=== PATIENT | male | born 1940 | race Caucasian/White ===

== ENCOUNTER 2021-12-16 12:39 | Emergency (ER) | payer MEDICARE, OTHER ==
[~2021-12-16] VITALS: Ht 182.9 cm; Wt 97.5 kg
--- NOTE | 2021-12-16 13:28 | ED General ---
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 She said he recently had labs done and his hemoglobin was 7.8 and he has been anemic before. They took him off his iron and restarted it recently due to this. Denies any bleeding anywhere including normal colored stools. He does say he is constipated however and has not had a bowel movement in a couple weeks. He has had no appetite for several days and really has not eaten hardly anything per the daughter. He is wheelchair-bound and does assist with transfers which is his baseline. Denies any focal weakness or numbness on one side of his body. Denies any pain anywhere specifically in his chest, abdomen, or head. For the past couple days he has felt more nauseous but no vomiting. Is also felt short of breath for about a week, worse at night when lying backwards. Cough started today. No fevers. 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 This wound has never fully healed after years. He has consistent wound care, and they say it looks really good and does not appear infected to them. Allergies and Home Medications Allergies Coded Allergies: No Known Drug Allergies (Unverified , 12/16/21) Patient Home Medication List Home Medication List Reviewed: Yes Review of Systems Review of Systems Constitutional: No chills, No fever EENTM: No blurred vision Respiratory: cough, short of breath Cardiovascular: No chest pain Gastrointestinal: No abdominal pain; constipation, nausea; No vomiting Genitourinary: no symptoms reported Musculoskeletal: no symptoms reported Skin: no symptoms reported Psychiatric/Neurological: No Symptoms Reported Hematologic/Lymphatic: No Symptoms Reported Immunological/Allergic: no symptoms reported All Other Systems Reviewed Negative Unless Noted: Yes Past Pumzyph-Bszjax-Gshynx Hx Patient Social History Tobacco Use?: No Smoking Status: Former Smoker Smokeless Tobacco Frequency: Never a User Use of E-Cig and/or Vaping Jose: Never a User Substance use?: No Alcohol Use?: Yes Alcohol type: Beer Alcohol Frequency: Once in a while Pt feels they are or have been: No Past Medical History Surgeries: Yes (stent in his leg, right big toe amputation) Physical Exam Vital Signs Vital Signs - First Documented 12/16/21 12:51 Temp 36.1 Pulse 106 Resp 16 B/P (MAP) 117/72 (87) O2 Delivery Room Air Capillary Refill : Height, Weight, BMI Height: '" Weight: lbs. oz. kg; BMI Method: General Appearance: No Apparent Distress, WD/WN, Other (pale) HEENT: PERRL/EOMI, Normal ENT Inspection, Pharynx Normal Neck: Full Range of Motion, Normal Inspection, Non Tender, Supple Respiratory: Chest Non Tender, Lungs Clear, Normal Breath Sounds, No Accessory Muscle Use, No Respiratory Distress Cardiovascular: Regular Rate, Rhythm, No Edema, Normal Peripheral Pulses Gastrointestinal: Normal Bowel Sounds, Non Tender, Soft; No Distended, No Guarding Back: Normal Inspection, No CVA Tenderness, No Vertebral Tenderness Extremity: Normal Capillary Refill, Normal Inspection, Normal Range of Motion, Non Tender, No Calf Tenderness, Pedal Edema, Other (Right big toe amputation, wound appears clean, dry, intact with no signs of secondary infection) Neurologic/Psychiatric: Alert, Oriented x3, No Motor/Sensory Deficits, Normal Mood/Affect, produce service team member II-XII Norm as Tested Skin: Normal Color, Warm/Dry Lymphatic: No Adenopathy Progress/Results/Core Measures Suspected Sepsis SIRS Temperature: Pulse: Respiratory Rate: Laboratory Tests 12/16/21 13:17: White Blood Count 17.2H Blood Pressure / Mean: Laboratory Tests 12/16/21 13:17: Creatinine 0.78, INR Comment 1.3, Platelet Count 464H, Total Bilirubin 0.6 Results/Orders Lab Results Laboratory Tests Test 12/16/21 13:17 Range/Units White Blood Count 17.2 H 4.3-11.0 10^3/uL Red Blood Count 4.25 L 4.30-5.52 10^6/uL Hemoglobin 8.5 L 13.3-17.7 g/dL Hematocrit 30 L 40-54 % Mean Corpuscular Volume 70 L 80-99 fL Mean Corpuscular Hemoglobin 20 L 25-34 pg Mean Corpuscular Hemoglobin Concent 29 L 32-36 g/dL Red Cell Distribution Width 20.5 H 10.0-14.5 % Platelet Count 464 H 130-400 10^3/uL Mean Platelet Volume 10.6 9.0-12.2 fL Immature Granulocyte % (Auto) 1 % Neutrophils (%) (Auto) 82 H 42-75 % Lymphocytes (%) (Auto) 12 12-44 % Monocytes (%) (Auto) 5 0-12 % Eosinophils (%) (Auto) 0 0-10 % Basophils (%) (Auto) 0 0-10 % Neutrophils # (Auto) 14.1 H 1.8-7.8 10^3/uL Lymphocytes # (Auto) 2.1 1.0-4.0 10^3/uL Monocytes # (Auto) 0.9 0.0-1.0 10^3/uL Eosinophils # (Auto) 0.0 0.0-0.3 10^3/uL Basophils # (Auto) 0.1 0.0-0.1 10^3/uL Immature Granulocyte # (Auto) 0.1 0.0-0.1 10^3/uL Neutrophils % (Manual) 82 % Lymphocytes % (Manual) 8 % Monocytes % (Manual) 4 % Eosinophils % (Manual) 0 % Basophils % (Manual) 0 % Band Neutrophils 3 % Atypical Lymphocytes 3 % Platelet Estimate INCREASED Hypochromasia 2+ Poikilocytosis 2+ Microcytosis 1+ Macrocytosis 1+ Elliptocytes SLIGHT Prothrombin Time 16.5 H 12.2-14.7 SEC INR Comment 1.3 0.8-1.4 Activated Partial Thromboplast Time 33 24-35 SEC Sodium Level 137 135-145 MMOL/L Potassium Level 4.6 3.6-5.0 MMOL/L Chloride Level 100 98-107 MMOL/L Carbon Dioxide Level 22 21-32 MMOL/L Anion Gap 15 H 5-14 MMOL/L Blood Urea Nitrogen 34 H 7-18 MG/DL Creatinine 0.78 0.60-1.30 MG/DL Estimat Glomerular Filtration Rate 89 BUN/Creatinine Ratio 44 Glucose Level 148 H 70-105 MG/DL Calcium Level 9.3 8.5-10.1 MG/DL Corrected Calcium 9.3 8.5-10.1 MG/DL Magnesium Level 2.1 1.6-2.4 MG/DL Total Bilirubin 0.6 0.1-1.0 MG/DL Aspartate Amino Transf (AST/SGOT) 17 5-34 U/L Alanine Aminotransferase (ALT/SGPT) 16 0-55 U/L Alkaline Phosphatase 74 40-136 U/L Troponin I < 0.30 <0.30 NG/ML Pro-B-Type Natriuretic Peptide 11553.0 H <75.0 PG/ML Total Protein 6.9 6.4-8.2 GM/DL Albumin 4.0 3.2-4.5 GM/DL Influenza Type A Antigen NEGATIVE NEGATIVE Influenza Type B Antigen NEGATIVE NEGATIVE My Orders Orders - IRENE KNAPP MD Cbc With Automated Diff (12/16/21 13:12) Magnesium (12/16/21 13:12) Chest 1 View Ap/Pa Only (12/16/21 13:12) Ekg Tracing (12/16/21 13:12) Comprehensive Metabolic Panel (12/16/21 13:12) Protime With Inr (12/16/21 13:12) Partial Thromboplastin Time (12/16/21 13:12) O2 (12/16/21 13:12) Monitor-Rhythm Ecg Trace Only (12/16/21 13:12) Ed Iv/Invasive Line Start (12/16/21 13:12) Troponin I Fs (12/16/21 13:12) Probnp Fs (12/16/21 13:12) Covid 19 Inhouse Test (12/16/21 13:12) Influenza A & B Antigens (12/16/21 13:12) Manual Differential (12/16/21 13:17) Furosemide Injection (Lasix Injection) (12/16/21 14:30) Azithromycin Tablet (Zithromax Tablet) (12/16/21 14:30) Medications Given in ED Current Medications Medications Dose Ordered Sig/Bigg Route Start Time Stop Time Status Last Admin Dose Admin Azithromycin 500 mg ONCE ONCE PO 12/16/21 14:30 12/16/21 14:31 DC 12/16/21 14:45 500 MG Furosemide 40 mg ONCE ONCE IVP 12/16/21 14:30 12/16/21 14:31 DC 12/16/21 14:45 40 MG Vital Signs/I&O 12/16/21 12:51 Temp 36.1 Pulse 106 Resp 16 B/P (MAP) 117/72 (87) O2 Delivery Room Air Capillary Refill : Progress Note : Progress Note 81-year-old with above history coming in feeling short of breath and generally weak. ABCs were intact and vitals were stable on presentation. Physical exam with edema but otherwise no significant abnormalities. His wound on his right foot appears not infected and is clean. EKG without any acute ischemic changes. Chest x-ray concerning for pulmonary edema and vascular congestion. BNP greater than 10,000. Troponin is negative. His shortness of breath is consistent with heart failure and volume overload. He was given IV Lasix which she is dianne to. Because I cannot exclude pneumonia on top of the fluid in his lungs, give him azithromycin as well. I offered the patient admission to the hospital for this heart failure exacerbation for further IV Lasix and evaluation by x ray service engineer. He is adamant that he wants to go home. His daughter is in agreement with this and wants to help take care of him. Because of this, I will write for p.o. Lasix as well as potassium for the next couple of weeks. I urged him to follow-up with his primary care doctor as soon as possible so they can begin managing this. They also said he has a x ray service engineer that they can have him see right away. He was then discharged home in stable condition with strict return precautions. ECG Initial ECG Impression Date: Dec 16, 2021 Initial ECG Impression Time: 13:31 Initial ECG Rate: 106 Initial ECG Rhythm: S.Tach Comment Narrow QRS, normal axis, no significant ST changes or T wave abnormalities Departure Impression Primary Impression: Heart failure Qualified Codes: I50.9 - Heart failure, unspecified Additional Impression: Volume overload Qualified Codes: E87.70 - Fluid overload, unspecified Disposition: 01 HOME, SELF-CARE Condition: Stable Departure-Patient Inst. Decision time for Depature: 14:59 Referrals: STELLA ARCHER MD Patient Instructions: Heart Failure ED Add. Discharge Instructions: Begin taking Lasix 40 mg daily which will make you urinate out the extra fluid. Also you will need to take a potassium supplement with this. You need to follow- up with Dr. Archer within the week to have repeat labs drawn as well as just a regular evaluation to be sure you are getting better. I also recommend follow-up with a x ray service engineer as soon as possible. If you begin feeling worse or have any concerns then please come back to the ER. Scripts Azithromycin (Azithromycin) 250 Mg Tablet 250 MG PO DAILY for 4 Days, #4 TAB Prov: IRENE KNAPP MD 12/16/21 Potassium Chloride (Potassium Chloride) 20 Meq Tablet.er 20 MEQ PO DAILY for 14 Days, #14 TAB Prov: IRENE KNAPP MD 12/16/21 Furosemide (Furosemide) 40 Mg Tablet 40 MG PO DAILY for 14 Days, #14 TAB Prov: IRENE KNAPP MD 12/16/21 IREEN KNAPP MD Dec 16, 2021 13:28
--- NOTE | 2021-12-16 13:33 | Diagnostic Imaging Report ---
INDICATION: Shortness of breath. TIME OF EXAM: 1:18 PM No prior studies are available for comparison. FINDINGS: The heart size normal. Central vascularity is prominent. There are prominent interstitial markings in both lungs with airspace consolidation in the right lower lobe. There appear to be small effusions bilaterally. There is no pneumothorax. IMPRESSION: Congestive changes with prominent interstitial markings and airspace consolidation in the right base and small effusions. Dictated by: Dictated on workstation # [id number]
[2021-12-16 13:54] LABS: BASOPHILS # (AUTO) 0.1 10^3/uL (0.0-0.1); BASOPHILS % (AUTO) 0 % (0-10); EOSINOPHILS % (AUTO) 0 % (0-10); HEMATOCRIT 30 % (40-54); HEMOGLOBIN 8.5 g/dL (13.3-17.7); LYMPHOCYTES # (AUTO) 2.1 10^3/uL (1.0-4.0); LYMPHOCYTES % (AUTO) 12 % (12-44); MEAN CORPUSCULAR HEMOGLOBIN 20 pg (25-34); MEAN CORPUSCULAR HGB CONC 29 g/dL (32-36); MEAN CORPUSCULAR VOLUME 70 fL (80-99); MEAN PLATELET VOLUME 10.6 fL (9.0-12.2); MONOCYTES # (AUTO) 0.9 10^3/uL (0.0-1.0); MONOCYTES % (AUTO) 5 % (0-12); NEUTROPHILS # (AUTO) 14.1 10^3/uL (1.8-7.8); NEUTROPHILS % (AUTO) 82 % (42-75); PLATELET COUNT 464 10^3/uL (130-400); WHITE BLOOD COUNT 17.2 10^3/uL (4.3-11.0)
[2021-12-16 13:57] LABS: INR 1.3 (0.8-1.4); PROTHROMBIN TIME PATIENT 16.5 SEC (12.2-14.7)
[2021-12-16 14:05] LABS: BILIRUBIN,TOTAL 0.6 MG/DL (0.1-1.0); CALCIUM 9.3 MG/DL (8.5-10.1); CREATININE SERUM 0.78 MG/DL (0.60-1.30); MAGNESIUM 2.1 MG/DL (1.6-2.4); POTASSIUM 4.6 MMOL/L (3.6-5.0); TOTAL PROTEIN 6.9 GM/DL (6.4-8.2)
[2021-12-16] MEDS ORDERED: AZITHROMYCIN 250 MG TAB (ZITHROMAX) PO ONE (14:30)
[2021-12-16] MEDS ORDERED: FUROSEMIDE 40 MG/4 ML INJ (LASIX) IVP ONE (14:30)
[2021-12-16 14:37] LABS: ATYPICAL LYMPHOCYTES 3 %; BAND NEUTROPHILS 3 %; BASOPHILS % (MANUAL) 0 %; EOSINOPHILS % (MANUAL) 0 %; LYMPHOCYTES % (MANUAL) 8 %; MONOCYTES % (MANUAL) 4 %; NEUTROPHILS % (MANUAL) 82 %
[2021-12-16 14:38] LABS: ELLIPT/OVALOCYTES SLIGHT; HYPOCHROMASIA 2+; MICROCYTOSIS 1+; PLATELET ESTIMATE INCREASED; POIKILOCYTOSIS 2+
[2021-12-16] MEDS ORDERED: AZIT250T12 PO (15:02)
[2021-12-16] MEDS ORDERED: FURO40TA4 PO (15:02)
[2021-12-16] MEDS ORDERED: POTA-51 PO (15:02)
[2021-12-16 15:19] VITALS: BP 122/68
== END 2021-12-16 15:19 | disposition home or self-care (01) ==
LOC: ER FS 12:43
DX: I50.9 Heart failure, unspecified (principal); E87.70 Fluid overload, unspecified; I73.9 Peripheral vascular disease, unspecified; E11.9 Type 2 diabetes mellitus without complications; Z87.891 Personal history of nicotine dependence; Z95.820 Peripheral vascular angioplasty status with implants and grafts; Z99.3 Dependence on wheelchair
CPT/HCPCS: 36415; 71045; 80053; 83735; 83880; 84484; 85007; 85027; 85610; 85730; 87635; 87804; 93005; 93041